=== PATIENT | male | born 1985 | race Two or more races ===

== ENCOUNTER 2025-07-14 19:49 | Emergency (ER) | payer OTHER ==
[~2025-07-14] VITALS: Ht 170.2 cm; Wt 59.0 kg
[2025-07-14] MEDS ORDERED: KETOROLAC TROMETHAMINE 15 MG/ML VIAL ONE (20:07)
[2025-07-14] MEDS ORDERED: MORPHINE SULFATE INJ 4 MG/ML DISP.SYRIN ONE (20:07)
[2025-07-14] MEDS ORDERED: ONDANSETRON HCL/PF 4 MG/2 ML VIAL ONE (20:07)
[2025-07-14] MEDS: ONDANSETRON HCL/PF - ER 4 MG/2 ML VIAL IV ONE (20:10)
[2025-07-14] MEDS: KETOROLAC TROMETHAMINE 15 MG/ML VIAL IV ONE (20:11)
[2025-07-14] MEDS: MORPHINE SULFATE INJ 2 MG/ML DISP.SYRIN IV ONE (20:13)
[2025-07-14 20:21] LABS: PLATELET COUNT (AUTO) 345 K/uL (150-450); RED BLOOD CELL COUNT(AUTO) 4.57 MIL/uL (4.5-6.0); RED CELL DISTRIBUTION WIDTH 13.8 % (11.5-15.0); WHITE BLOOD COUNT (AUTO) 16.0 K/uL (4.3-11.0)
[2025-07-14 20:26] LABS: CALCIUM, SERUM 8.7 mg/dL (8.5-10.1); CREATININE 1.2 mg/dL (0.6-1.3); SODIUM SERUM 140.0 mmol/L (136-145); UREA NITROGEN, BLOOD 14.0 mg/dL (7-18)
[2025-07-14] MEDS ORDERED: TDAP [DIPH/PERTUSSIS/TET] 0.5 ML VIAL IM ONE (20:34)
[2025-07-14] MEDS: TDAP [DIPH/PERTUSSIS/TET] 0.5 ML VIAL IM ONE (20:35)
[2025-07-14] MEDS ORDERED: IV NS 0.9% 250 ML IV ONE (20:45)
[2025-07-14] MEDS ORDERED: IOHEXOL-350 100 ML VIAL IV ONE (20:45)
[2025-07-14] MEDS ORDERED: HYDR-4209 PO (21:48)
[2025-07-14] MEDS ORDERED: AMOX-430 PO (21:48)
[2025-07-14 23:35] VITALS: BP 133/85; TEMP 98.2; O2SAT 97
== END 2025-07-14 23:35 ==
LOC: ER 19:53
DX: S90.912A Unspecified superficial injury of left ankle, initial encounter (principal); Z65.3 Problems related to other legal circumstances; W34.00XA Accidental discharge from unspecified firearms or gun, initial encounter; Y93.89 Activity, other specified; Y92.89 Other specified places as the place of occurrence of the external cause; Y99.8 Other external cause status
CPT/HCPCS: 99285; 96374; 75635; 96375; 90471; 90715; 73610; 73630; 85025; 80048; 36415; J1885; J2270; J2405 ×2; J7050; Q9967